=== PATIENT | female | born 1995 | race Caucasian/White ===

== ENCOUNTER 2017-07-17 13:25 | Outpatient (CLI) | payer BC ==
--- NOTE | 2017-07-17 16:23 | ULT ---
SOFT TISSUE NECK ULTRASOUND: 07/17/17 HISTORY: 21-year-old female with palpable finding in the neck. Lymphadenopathy. Ultrasound examination of the right and left neck demonstrates several small nodules in the right mejia bmandibular region measuring 0.2 x 0.6 cm. Several other small normal sized lymph nodes are no jann in both the right and left neck. No evidence of abnormally enlarged lymph nodes. No evidence of other solid mass. No abscess or abnormal fluid collections. IMPRESSION: Unremarkable neck ultrasound. Incidental small or normal sized bilateral neck lymph nodes. No eviden ce of lymphadenopathy or other mass, abscess, or abnormal fluid collection. POS: [facility]
== END 2017-07-17 13:26 | disposition home or self-care (01) ==
LOC: ULT 13:25
PROVIDERS: ATTEND Physician Assistant
DX: R59.1 Generalized enlarged lymph nodes (principal)
CPT/HCPCS: 76536

== ENCOUNTER 2018-06-17 09:11 | Outpatient (CLI) | payer BC ==
--- NOTE | 2018-06-17 11:07 | MRI ---
MRI OF RIGHT WRIST PERFORMED WITHOUT CONTRAST ENHANCEMENT: Date: 06/17/18 HISTORY: Right wrist pain for months. FINDINGS: The marrow signal change within the carpal bones, visualized portions of the metacarpals, and the dis rosalba radius and ulna are all normal. Triangular fibrocartilage is felt to be intact. Scapholunate and lunotriquetral ligaments are normal in appearance. Carpal tunnel region appears unremarkable. I do not appreciate any tenosynovitis change of the extensor tendons. IMPRESSION: Unremarkable MRI of the wrist. POS: [facility]
== END 2018-06-17 09:12 | disposition home or self-care (01) ==
LOC: SCSMRI 09:11
PROVIDERS: ATTEND Orthopaedic Surgery Hand Surgery
DX: M77.9 Enthesopathy, unspecified (principal)

== ENCOUNTER 2019-07-19 15:19 | Inpatient (IN) | payer BC ==
[2019-07-19] MEDS ORDERED: Magnesium 2 GM/50 ML BAG (IN WATER) ONE (15:26)
[2019-07-19 15:36] LABS: Hemoglobin 14.4 g/dL (12.0-16.0); Mean Platelet Volume 8.1 fL (7.4-10.4); Platelet Count 431 thou/uL (130-400); RBC Distribution Width 11.5 % (11.5-14.5); Red Blood Cell (RBC) Count 4.66 mill/uL (4.20-5.40); White Blood Cell (WBC) Count 16.6 thou/uL (4.8-10.8)
[2019-07-19] MEDS ORDERED: Fentanyl 100 MCG/2 ML VIAL ONE ×2 (15:38→17:07)
--- NOTE | 2019-07-19 15:43 | RAD ---
XR Chest 1 View Portable History: Intubated patient Comparison: None. Findings: Patient is intubated with endotracheal tube tip at the level of the clavicles in good posit ion. Enteric tube tip below diaphragm although out of field of view. The lungs are clear. No pneumothorax or effusion. Impression: Satisfactory position of endotracheal tube. Enteric tube tip below diaphragm although out of field of view.
[2019-07-19 15:54] LABS: Lymphocytes 28 % (21-51); MDiff Complete? YES; Monocytes 3 % (0-10); Neutrophil 23 % (42-75); Platelet Morphology Comment Appears Increased; Polychromasia SLIGHT = 2-3 cells (100X) (0-2/hpf); Reactive Lymphocytes 46 % (0-10); Reflex for Review?? YES
[2019-07-19 15:59] LABS: ALT (SGPT) 15 U/L (8-55); AST (SGOT) 12 U/L (5-34); Alkaline Phosphatase 64 U/L (40-110); Anion Gap 20 mmol/L (10-20); BUN (Urea Nitrogen) 20 mg/dL (7.0-18.7); Bilirubin, Total 0.2 mg/dL (0.2-1.2); Calc. Creatinine Clearance 0 mL/min (70-130); Calcium 8.8 mg/dL (7.8-10.44); Carbon Dioxide 16 mmol/L (22-29); Chloride 104 mmol/L (98-107); Estimated GFR-MDRD 59; Globulin 2.5 g/dL (2.4-3.5); Glucose 279 mg/dL (70-105); Protein, Total 6.5 g/dL (6.0-8.3); Sodium 137 mmol/L (136-145)
[2019-07-19 16:01] LABS: Actual Bicarbonate (HCO3a) 19.5 mEq/L (22-28); Analyzer IN Cardio ER; Base Excess (BEa) -14.3 mEq/L (-2.0 to +3.0); Calcium, Ionized 1.26 mmol/L (1.12-1.30); Carboxyhemoglobin (COHb) 0.1 gm% (0.0-3.0); Hemoglobin (Hb) 14.6 g/dL (12.0-16.0); O2 Tension (PaO2) 92.3 mmHg (80.0-100.0); Potassium - ABG Lab 3.22 mmol/L (3.70-5.30)
[2019-07-19 16:02] LABS: Potassium 2.7 mmol/L (3.5-5.1)
[2019-07-19 16:03] LABS: CO2 Tension 89.5 mmHg (35.0-45.0); pH, Arterial 6.96 (7.35-7.45)
[2019-07-19 16:04] LABS: ALV-art Gradient 508.825 (0-20); Puncture Site RRA
[2019-07-19 16:21] LABS: Actual Bicarbonate (HCO3a) 19.3 mEq/L (22-28); Analyzer IN Cardio ER; Base Excess (BEa) -8.7 mEq/L (-2.0 to +3.0); CO2 Tension 49.6 mmHg (35.0-45.0); Calcium, Ionized 1.16 mmol/L (1.12-1.30); Carboxyhemoglobin (COHb) 0.1 gm% (0.0-3.0); Hemoglobin (Hb) 13.7 g/dL (12.0-16.0); O2 Tension (PaO2) 75.9 mmHg (80.0-100.0); Potassium - ABG Lab 3.04 mmol/L (3.70-5.30)
[2019-07-19 16:25] LABS: pH, Arterial 7.21 (7.35-7.45)
[2019-07-19 16:26] LABS: Puncture Site RBRACH
[2019-07-19] MEDS ORDERED: CCU Electrolyte Replacement 1 EACH IVPB ONE (16:31)
[2019-07-19] MEDS ORDERED: Acetaminophen 325 MG Suppository PR PRN (16:31)
[2019-07-19] MEDS ORDERED: Acetaminophen 325 MG/10.15 ML UDCUP PO PRN (16:31)
[2019-07-19] MEDS ORDERED: Ondansetron PF 4 MG/2 ML Vial IVP PRN (16:31)
[2019-07-19] MEDS ORDERED: Ventilator Sedation Protocol 1 EACH FS PRN (16:45)
[2019-07-19] MEDS ORDERED: Propofol 1,000 MG/100 ML VIAL IV ONE (17:07)
[2019-07-19] MEDS ORDERED: Famotidine/PF 20 mg/2ml Vial ONE (17:07)
[2019-07-19] MEDS ORDERED: Potassium Chloride 40 MEQ in Premix Bag 1 BAG IVPB PRN (17:35)
[2019-07-19] MEDS ORDERED: CCU ELECTROLYTE REPLACEMENT PROTOCOL FS PRN (17:35)
[2019-07-19] MEDS ORDERED: Potassium Phosphate 12 MMOL in Sodium Chloride 0.9% 250 ML 250 ML IV PRN (17:35)
[2019-07-19] MEDS ORDERED: Potassium Chloride 20 MEQ TAB PO PRN (17:35)
[2019-07-19] MEDS ORDERED: Magnesium Oxide 400 MG TAB PO PRN ×2 (17:35)
[2019-07-19] MEDS ORDERED: Potassium Phosphate 15 MMOL in Sodium Chloride 0.9% 250 ML 250 ML IV PRN (17:35)
[2019-07-19] MEDS ORDERED: Potassium Chloride 40 MEQ in Sodium Chloride 0.9% 250 ML 250 ML IVPB PRN (17:35)
[2019-07-19] MEDS ORDERED: Potassium Phosphate 9 MMOL in Sodium Chloride 0.9% 100 ML IVPB PRN (17:35)
[2019-07-19] MEDS ORDERED: Magnesium 2 GM/50 ML 2 GM in Premix Bag 1 BAG IVPB PRN (17:35)
[2019-07-19] MEDS ORDERED: PHOS-NAK 1 PKT PACK PO PRN ×2 (17:35)
[2019-07-19] MEDS ORDERED: Morphine 2 MG/ML SYRINGE SLOW IVP PRN (17:36)
[2019-07-19] MEDS ORDERED: fentaNYL Citrate/PF 2,000 MCG in Sodium Chloride 0.9% 60 ML IV SCH (17:36)
[2019-07-19] MEDS ORDERED: DISCONTINUE PREVIOUS NARCOTIC PAIN MEDICATIONS AND BENZODIAZEPINES FS SCH (17:36)
[2019-07-19] MEDS ORDERED: Propofol BOLUS 1,000 MG/100 ML VIAL IV PRN (17:36)
[2019-07-19] MEDS ORDERED: Fentanyl BOLUS 250 ML IVPB PRN (17:36)
[2019-07-19 17:37] VITALS: BMI 22.6
[2019-07-19] MEDS: Sodium Chloride 0.9% 1,000 ML IV SCH ×2 (17:45→23:17)
[2019-07-19] MEDS ORDERED: Potassium Chloride 40 MEQ in Sodium Chloride 0.9% 250 ML 250 ML IVPB SCH (17:45)
[2019-07-19] MEDS: methylPREDNISolone Sod Succ 40 MG VIAL IVP SCH ×2 (18:07→23:15)
[2019-07-19] MEDS: Ipratropium Bromide 2.5 ml Neb NEB SCH ×2 (18:24→21:56)
[2019-07-19] MEDS: Lorazepam 2 MG/ML VIAL SLOW IVP PRN ×2 (18:40→21:49)
--- NOTE | 2019-07-19 18:54 | CON ---
DATE OF CONSULTATION: 07/19/2019 REASON FOR CONSULTATION: Acute respiratory failure related anaphylaxis, following encompasses 45 minutes of critical care time. HISTORY OF PRESENT ILLNESS: The patient is a 23-year-old female, who apparently got some coffee from [employer] and took it to a classroom today that the patient drank it and identified there was probably some milk in the product. She immediately began to have anaphylaxis. EMS was called. The patient had an EpiPen injected. She was intubated by EMS en route. She received further doses of epinephrine, Benadryl, Pepcid, and IV Solu-Medrol. She is now intubated and on mechanical ventilation. PAST MEDICAL HISTORY: Remarkable for: 1. Asthma, controlled with metered-dose inhaler. 2. 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 SOCIAL HISTORY: Nonsmoker. Does not consume alcohol. REVIEW OF SYSTEMS: Cannot be obtained as the patient is currently intubated on mechanical ventilation. MEDICATIONS PRIOR TO ADMISSION: She had a Xopenex metered-dose inhaler in her possession. FAMILY MEDICAL HISTORY: Not known at this time. PHYSICAL EXAMINATION: VITAL SIGNS: Temperature 97.0, pulse 123, blood pressure 151/107, and O2 saturation 99%. GENERAL: She is intubated and paralyzed. HEENT: Pupils are 4 mm, currently not reactive. Sclerae anicteric. Oropharynx, she has enlarged tongue. Her lower lip is also swollen. NECK: No adenopathy or JVD. CHEST: No wheezing at this time. CARDIOVASCULAR: S1 and S2. Slightly tachycardic. No murmur. ABDOMEN: Soft and nontender. She has a piercing in her umbilicus. EXTREMITIES: No clubbing, cyanosis, or edema. She previously had urticarial-type rash which is dissipated according to the nursing staff. LABORATORY DATA: Chest x-ray shows no mass, effusion, or infiltrate. White blood cell count 16.6, hematocrit 45.2, and platelet count 431 with 23% neutrophils, 46% reactive lymphocytes. PH is 7.21, pCO2 of 49, pO2 of 75 on SIMV rate 22, tidal volume 470, PEEP 5, pressure support of 10, and FiO2 of 50%. Initially, her blood gas showed a pH of 6.96, pCO2 of 89, and pO2 of 82. Sodium is 137, potassium 2.7, chloride 104, CO2 of 16, BUN 20, creatinine 1.1, and glucose 279. ASSESSMENT: 1. Anaphylactic shock secondary to milk protein. 2. Acute respiratory failure, requiring mechanical ventilation. 3. History of asthma. 4. Low potassium. 5. Hyperglycemia. PLAN: The patient will be kept intubated overnight. She will be given Solu-Medrol, breathing treatments, IV Benadryl, and IV Pepcid. Hopefully, can extubate tomorrow. Job ID: [id number]
[2019-07-19] MEDS: Famotidine/PF 20 mg/2ml Vial SLOW IVP SCH (20:25)
[2019-07-19 21:16] LABS: Potassium 3.7 mmol/L (3.5-5.1)
[2019-07-19 21:41] LABS: Actual Bicarbonate (HCO3a) 15.6 mEq/L (22-28); Base Excess (BEa) -9.4 mEq/L (-2.0 to +3.0); CO2 Tension 31.5 mmHg (35.0-45.0); Calcium, Ionized 1.16 mmol/L (1.12-1.30); Carboxyhemoglobin (COHb) 0.6 gm% (0.0-3.0); Hemoglobin (Hb) 13.5 g/dL (12.0-16.0); O2 Tension (PaO2) 210.1 mmHg (80.0-100.0); Potassium - ABG Lab 4.05 mmol/L (3.70-5.30); pH, Arterial 7.31 (7.35-7.45)
[2019-07-19 21:50] LABS: ALV-art Gradient 35.725 (0-20); Puncture Site LRA
[2019-07-19] MEDS: Propofol 1,000 MG/100 ML VIAL IV PRN (22:01)
--- NOTE | 2019-07-19 22:37 | HP ---
CHIEF COMPLAINT: Anaphylactic shock. HISTORY OF PRESENT ILLNESS: This is a 23-year-old female was eating at a restaurant and went into respiratory arrest and the patient was brought in intubated on ventilator. We were called in by the ER staff to admit the patient. The pulmonology title curative specialist had already seen the patient and evaluated. The patient has been on ventilator currently. PAST MEDICAL HISTORY: Negative. ALLERGIES: TO NUTS. FAMILY HISTORY: Nothing contributory. SOCIAL HISTORY: Does not smoke or drink alcohol. REVIEW OF SYSTEMS: Difficult to assess as the patient has been intubated. PHYSICAL EXAMINATION: GENERAL: The patient is intubated, sedated. VITAL SIGNS: Stable, afebrile. HEENT: ANDREA. Atraumatic, normocephalic. Dry mucous membranes. Examination of the lips and lids shows edema present. NECK: Supple. No JVD. LUNGS: Clear to auscultation. CV: S1 and S2 heard. ABDOMEN: Soft. Bowel sounds are present, nontender, nondistended. EXTREMITIES: No cyanosis, calf tenderness, or edema. PICTURES EDITOR: Nonfocal. LABORATORY DATA: White count 16,000, hemoglobin 14.4, hematocrit 45.2, platelets 431. Sodium 137, potassium 2.7, sugar 279. IMPRESSION: 1. Acute anaphylactic reaction. 2. Hypokalemia. 3. Stress-induced elevated white count. PLAN: 1. The patient has been admitted to ICU. Dr. Benavides, bleaching supervisor, visited the patient in the ER room and evaluated the patient and appropriate instructions were given. I met the patient's best friend who is at the bedside and explained the risks, complications at length. Appreciate pulmonology input. 2. Steroids as needed. 3. Vent management as per Pulmonology. 4. Continue to monitor the patient and we will place the patient on DVT prophylaxis as well. Further recommendation depending on the clinical course. We will place the patient on Protonix as well. Job ID: [id number]
[2019-07-20] MEDS: Ipratropium Bromide 2.5 ml Neb NEB SCH ×6 (02:31→21:54)
[2019-07-20] MEDS: Lorazepam 2 MG/ML VIAL SLOW IVP PRN (03:29)
[2019-07-20 04:37] LABS: ALT (SGPT) 16 U/L (8-55); AST (SGOT) 7 U/L (5-34); Albumin 3.8 g/dL (3.5-5.0); Alkaline Phosphatase 51 U/L (40-110); Anion Gap 17 mmol/L (10-20); BUN (Urea Nitrogen) 17 mg/dL (7.0-18.7); Bilirubin, Total 0.2 mg/dL (0.2-1.2); Calc. Creatinine Clearance 147 mL/min (70-130); Calcium 8.8 mg/dL (7.8-10.44); Carbon Dioxide 16 mmol/L (22-29); Chloride 109 mmol/L (98-107); Estimated GFR-MDRD Greater than 90; Globulin 2.1 g/dL (2.4-3.5); Glucose 140 mg/dL (70-105); Potassium 4.7 mmol/L (3.5-5.1); Protein, Total 5.9 g/dL (6.0-8.3); Sodium 137 mmol/L (136-145)
[2019-07-20] MEDS: Propofol 1,000 MG/100 ML VIAL IV PRN (05:47)
[2019-07-20] MEDS: methylPREDNISolone Sod Succ 40 MG VIAL IVP SCH ×4 (05:50→23:52)
[2019-07-20 06:08] LABS: Hemoglobin 11.9 g/dL (12.0-16.0); Mean Corpuscular HGB CONC 33.8 g/dL (32.0-36.0); Mean Corpuscular Hemoglobin 31.5 pg (27.0-31.0); Mean Corpuscular Volume 93.4 fL (78.0-98.0); Mean Platelet Volume 7.9 fL (7.4-10.4); Platelet Count 327 thou/uL (130-400); RBC Distribution Width 11.5 % (11.5-14.5); Red Blood Cell (RBC) Count 3.78 mill/uL (4.20-5.40); White Blood Cell (WBC) Count 13.8 thou/uL (4.8-10.8)
[2019-07-20 06:09] LABS: Band 8 % (5-11); Lymphocytes 6 % (21-51); MDiff Complete? YES; Monocytes 2 % (0-10); Neutrophil 84 % (42-75)
[2019-07-20] MEDS: Sodium Chloride 0.9% 1,000 ML IV SCH ×3 (06:44→17:05)
[2019-07-20] MEDS ORDERED: DC Sedation Protocol FS ONE (07:28)
[2019-07-20] MEDS: clonazePAM 0.5 MG TAB PO PRN (08:14)
[2019-07-20] MEDS: Famotidine/PF 20 mg/2ml Vial SLOW IVP SCH ×2 (08:17→20:04)
[2019-07-20] MEDS: Enoxaparin Sodium 40 MG/0.4 ML SYRINGE SC SCH (08:34)
[2019-07-20] MEDS ORDERED: Enoxaparin Sodium 40 MG/0.4 ML SYRINGE SC SCH (09:00)
[2019-07-20] MEDS ORDERED: Pantoprazole 40 MG VIAL IVP SCH (09:00)
[2019-07-20] MEDS ORDERED: FLU VACC QS2019-20(6MOS UP)/PF 60 MCG/0.5 ML SYRINGE IM ONE (09:00)
[2019-07-20] MEDS: Acetaminophen 325 MG TAB PO PRN (09:05)
--- NOTE | 2019-07-20 09:13 | RAD ---
SEMIUPRIGHT PORTABLE CHEST 1 VIEW: Date: 07/20/19 HISTORY: Respiratory insufficiency. COMPARISON: 07/19/19 FINDINGS: Life support tubes remain in place. There is some rotation to the right. No confluent pneumonia, over t edema, pleural effusion, or other acute process. IMPRESSION: No acute intrathoracic disease. Stable from prior study. POS: [facility]
--- NOTE | 2019-07-20 09:15 | PDOC.HOSPP ---
- Subjective Encounter Date: 07/20/19 Encounter Time: 09:13 Subjective: Extrubated, awake. Does not want SCDs as it was squeezing, The patient has been on Lovnox already, requesting to D?Padmini ross - Objective Vital Signs & Weight: Vital Signs (12 hours) Temp Pulse Resp BP Pulse Ox 07/20/19 08:40 118 H 18 99 07/20/19 06:43 117 H 113/67 07/20/19 06:40 97 16 99 07/20/19 06:00 15 07/20/19 05:00 98.5 F 07/20/19 04:00 18 07/20/19 02:31 100 18 100 07/20/19 02:00 18 07/20/19 00:00 99.3 F 20 07/19/19 22:00 18 07/19/19 21:56 110 H 20 100 Weight Weight 159 lb 13.362 oz Most Recent Monitor Data Heart Rate from ECG 126 NIBP 118/91 NIBP BP-Mean 100 Respiration from ECG 18 SpO2 100 I&O: 07/19/19 07/20/19 07/21/19 06:59 06:59 06:59 Intake Total 1547.5 Output Total 1250 Balance 297.5 Result Diagrams: 07/20/19 03:19 07/20/19 03:19 Additional Labs: Accuchecks 07/20/19 07/19/19 05:57 23:28 POC Glucose 125 H 127 H Hospitalist ROS - Medication Medications: Active Medications Generic Name Dose Route Start Last Admin Trade Name Freq PRN Reason Stop Dose Admin Acetaminophen 650 mg 07/20/19 08:33 07/20/19 09:05 Tylenol PO 650 mg Q6H PRN Administration Headache/Fever or Pain Clonazepam 1 mg 07/20/19 07:39 07/20/19 08:14 Klonopin PO 1 mg TID PRN Administration Anxiety Enoxaparin Sodium 40 mg 07/20/19 09:00 07/20/19 08:34 Lovenox SC 40 mg 0900 PEGGY Administration Famotidine 20 mg 07/19/19 21:00 07/20/19 08:17 Pepcid SLOW IVP 20 mg Q12HR PEGGY Administration Sodium Chloride 1,000 mls @ 50 mls/hr 07/20/19 07:30 07/20/19 08:20 Normal Saline 0.9% IV Not Given .Q20H PEGGY Ipratropium [place] 2.5 ml 07/19/19 18:30 07/20/19 06:40 Atrovent NEB 2.5 ml [id number] PEGGY Administration Methylprednisolone Sodium Succinate 60 mg 07/19/19 18:00 07/20/19 05:50 Solu-Medrol IVP 60 mg Q6HR PEGGY Administration - Exam General Appearance: NAD, awake alert, ill appearing ENT: normocephalic atraumatic, no oropharyngeal lesions, moist mucosa, dry oral mucosa Neck: supple, symmetric, no JVD, no thyromegaly, no lymphadenopathy, no carotid bruit, JVD Heart: RRR, no murmur, no gallops, no rubs, normal peripheral pulses, irregular , diminshed peripheral pulses, murmur present, II/IV, III/IV Respiratory: CTAB, no wheezes, no rales, no ronchi, normal chest expansion, no tachypnea, normal percussion, rales, rhonchi, tachypneic, wheezes Gastrointestinal: soft, non-tender, non-distended, normal bowel sounds, no palpable masses, no hepatomegaly, no splenomegaly, no bruit, no guarding, no rigidity, tender to palpation, distended, diminished bowl sounds, voluntary guarding Extremities: no cyanosis, no clubbing, no edema, 1+ LE edema, 2+ LE edema, clubbing Skin: normal turgor, no lesions, no rashes, tenting Neurological: cranial nerve grossly intact, normal sensation to touch, no weakness, no focal deficits, no new deficit, facial droop, hemiplegia, speech deficit, vision deficit Hosp A/P (1) Respiratory failure Code(s): J96.90 - RESPIRATORY FAILURE, UNSP, UNSP W HYPOXIA OR HYPERCAPNIA Status: Acute (2) Anaphylactic reaction due to peanuts Code(s): T78.01XA - ANAPHYLACTIC REACTION DUE TO PEANUTS, INITIAL ENCOUNTER Status: Acute - Plan plan discussed w/ family (D/c cody) D?C [facility].
--- NOTE | 2019-07-20 09:28 | PRG ---
DATE OF SERVICE: 07/20/2019 TIME SPENT: 35 minutes of critical care time. SUBJECTIVE: The patient was still on mechanical ventilation when I arrived today. She had passed a spontaneous breathing trial and had an air leak around her cuff when deflated. OBJECTIVE: VITAL SIGNS: On exam, temperature is 98.5, pulse 119, blood pressure 115/75, and O2 saturation 100%. GENERAL: She is tearful, but awake, follows commands. HEENT: Remarkable for some lip swelling. Tongue is normal size. NECK: Without adenopathy or JVD. CHEST: Clear to auscultation. CARDIAC: S1 and S2, regular. ABDOMEN: Soft and nontender. EXTREMITIES: No clubbing, cyanosis, or edema. No rash present. LABORATORY DATA: White blood cell count 13.8, hematocrit 35.3, and platelet count 327. Sodium 137, potassium 4.7, chloride 109, CO2 of 16, BUN 17, creatinine 0.7, glucose 140, and albumin 3.8. ASSESSMENT: 1. Anaphylactic reaction to milk protein. 2. Acute respiratory failure, requiring mechanical ventilation. PLAN: 1. Extubate and observe. 2. Keep in ICU for several more hours to monitor. 3. Decrease IV fluids. 4. Restricted diet. Job ID: [id number]
[2019-07-20] MEDS: Mometasone/Formoterol 120 PUFF INHALER INH SCH (18:22)
[2019-07-21] MEDS: Ipratropium Bromide 2.5 ml Neb NEB SCH ×4 (02:16→14:53)
[2019-07-21] MEDS: Sodium Chloride 0.9% 1,000 ML IV SCH (04:25)
[2019-07-21] MEDS: methylPREDNISolone Sod Succ 40 MG VIAL IVP SCH ×2 (05:37→12:26)
[2019-07-21 05:49] LABS: Band 1 % (5-11); Hemoglobin 10.8 g/dL (12.0-16.0); Lymphocytes 5 % (21-51); MDiff Complete? YES; Mean Corpuscular HGB CONC 33.3 g/dL (32.0-36.0); Mean Platelet Volume 7.9 fL (7.4-10.4); Monocytes 7 % (0-10); Neutrophil 87 % (42-75); Platelet Count 314 thou/uL (130-400); RBC Distribution Width 11.2 % (11.5-14.5); Red Blood Cell (RBC) Count 3.49 mill/uL (4.20-5.40); White Blood Cell (WBC) Count 12.1 thou/uL (4.8-10.8)
[2019-07-21 06:17] LABS: ALT (SGPT) 14 U/L (8-55); AST (SGOT) 7 U/L (5-34); Albumin 3.9 g/dL (3.5-5.0); Alkaline Phosphatase 47 U/L (40-110); Anion Gap 12 mmol/L (10-20); BUN (Urea Nitrogen) 11 mg/dL (7.0-18.7); Bilirubin, Total 0.2 mg/dL (0.2-1.2); Calc. Creatinine Clearance 172 mL/min (70-130); Carbon Dioxide 24 mmol/L (22-29); Chloride 106 mmol/L (98-107); Estimated GFR-MDRD Greater than 90; Globulin 2.2 g/dL (2.4-3.5); Glucose 125 mg/dL (70-105); Potassium 4.1 mmol/L (3.5-5.1); Protein, Total 6.1 g/dL (6.0-8.3); Sodium 138 mmol/L (136-145)
[2019-07-21] MEDS: Mometasone/Formoterol 120 PUFF INHALER INH SCH (06:43)
[2019-07-21] MEDS: Enoxaparin Sodium 40 MG/0.4 ML SYRINGE SC SCH (08:35)
[2019-07-21] MEDS: Famotidine/PF 20 mg/2ml Vial SLOW IVP SCH (08:35)
[2019-07-21] MEDS: clonazePAM 0.5 MG TAB PO PRN (10:07)
[2019-07-21] MEDS: Acetaminophen 325 MG TAB PO PRN (10:07)
--- NOTE | 2019-07-21 11:40 | PRG ---
DATE OF SERVICE: 07/21/2019 SUBJECTIVE: She feels good and wants to go home. OBJECTIVE: VITAL SIGNS: Temperature 97.4, pulse 63, respirations 16, O2 saturation 97% on room air, blood pressure 124/78. HEENT: Unremarkable. Lip swelling has dissipated. NECK: No JVD. CHEST: Clear. CARDIAC: S1 and S2. Regular. ABDOMEN: Soft. EXTREMITIES: No edema. ASSESSMENT: 1. Status post anaphylactic reaction to milk protein. 2. History of asthma. PLAN: The patient is stable for discharge. She will need EpiPen. I have told her to go see an certified ski patroller to establish care. Continue her outpatient asthma medications. Job ID: [id number]
[2019-07-21 14:52] VITALS: BP 118/75; TEMP 98.1
--- NOTE | 2019-07-21 23:17 | DIS ---
DATE OF ADMISSION: 07/19/2019 DATE OF DISCHARGE: 07/21/2019 ADMITTING DIAGNOSIS: Acute anaphylactic shock and angioedema requiring vent support. DISCHARGE DIAGNOSIS: Anaphylactic shock, resolved. CONSULTANTS ON THE CASE: Pulmonology and Critical Care. HOSPITAL COURSE: The patient has been hospitalized to ICU, was placed on ventilator and Solu-Medrol IV was given. The patient's symptoms started improving by next day, the patient has been extubated, tolerating diet well and continued steroids one more day at the recommendations of Pulmonology Critical Care. This morning, Pulmonology Critical Care determined the patient to be transferred to outpatient care for followup with Allergy and Immunology as well as PCP, which the patient already has established care. DISCHARGE INSTRUCTIONS: Discharge patient to outpatient care. Diet regular. Activity as tolerated. CONDITION OF THE PATIENT AT THE TIME OF DISCHARGE: Tolerating diet well, ambulating and breathing well. FOLLOWUP CARE: Follow up with follow up clerk and PCP as scheduled. DISCHARGE MEDICATIONS: EpiPen use as directed p.r.n. as well as family counseling for all dietary allergies. Job ID: [id number]
== END 2019-07-21 14:57 | disposition home or self-care (01) | DRG 915 ==
LOC: ERS 15:19 → CCU 16:10 → T4-A 07-21 03:17
PROVIDERS: ADMIT Internal Medicine; ATTEND Internal Medicine
PROC: 5A1935Z Respiratory Ventilation, Less than 24 Consecutive Hours (ICD-10-PCS; principal; 2019-07-19)
PROC: 0BH17EZ Insertion of Endotracheal Airway into Trachea, Via Natural or Artificial Opening (ICD-10-PCS; 2019-07-19)
DX: T78.07XA Anaphylactic reaction due to milk and dairy products, initial encounter (principal); J96.00 Acute respiratory failure, unspecified whether with hypoxia or hypercapnia; E87.6 Hypokalemia; D72.829 Elevated white blood cell count, unspecified; J45.909 Unspecified asthma, uncomplicated; T78.3XXA Angioneurotic edema, initial encounter; R73.9 Hyperglycemia, unspecified
CPT/HCPCS: 36415; 36416; 51702; 71045; 80053; 82805; 85007; 85025; 85027; 85060; 93005; 94002; 94003; 96365; 96375; J1650; J2060; J2270; J2704; J2920; J3010; J3475; J3480; J7050; J7620; S0028

== ENCOUNTER 2019-10-29 08:23 | Outpatient (CLI) | payer BC ==
[2019-10-29] MEDS ORDERED: Iopamidol 370 76% 100 ML VIAL ONE (09:12)
[2019-10-29] MEDS ORDERED: Iopamidol 370 76% 50 ML VIAL FS ONE (09:12)
--- NOTE | 2019-10-29 12:53 | CT ---
CT ABDOMEN AND PELVIS WITH CONTRAST: Date: 10/29/2019 HISTORY: Lower abdominal pain for 1 month, getting worse over last 2 weeks. TECHNIQUE: Multiple contiguous axial images were obtained in a CT of the abdomen and pelvis with contrast. PO co ntrast was administered. Sagittal and coronal reformats were performed. FINDINGS: The liver, gallbladder, kidneys, adrenal glands, spleen, and pancreas are unremarkable. No free air, free fluid, or stranding changes are seen in the abdomen or pelvis. The reproductive organs are unremarkable. The large and small bowel are unremarkable. The appendix is normal. No abdominal or pelvic lymphadenopathy is seen. The osseous structures, visualized inferior thorax, and abdominal wall soft tissues are unremarkable. IMPRESSION: No evidence of acute intra-abdominal/pelvic abnormality. POS: [facility]
== END 2019-10-29 08:24 | disposition home or self-care (01) ==
LOC: CT 08:23
PROVIDERS: ATTEND Family Medicine
DX: R10.84 Generalized abdominal pain (principal); R10.2 Pelvic and perineal pain
CPT/HCPCS: 74177; Q9967